=== PATIENT | male | born 1950 | race Caucasian/White ===

== ENCOUNTER → 2019-04-22 10:42 | Outpatient (CLI) | payer BC, SELFPAY ==
[2019-04-02 09:37] VITALS: BMI 29.9
--- NOTE | 2019-04-22 10:46 | ECHOD_ITS ---
Reason For Study: Afib/Flutter Procedure This was a 2D Doppler, Color Flow transthoracic echocardiogram. Myocardial strain analysis was performed in this exam to aid in the assessment of cardiac function. Exam performed in department. Left Ventricle Normal size and thickness. The estimated ejection fraction is 60 %. Normal diastology for age. No regional wall motion abnormalities noted. Right Ventricle Normal size and thickness. Normal systolic function. Atria Normal left atrium. Normal right atrium. Normal atrial septum. Mitral Valve The mitral valve is structurally normal. No prolapse or stenosis seen. Trivial mitral valve insufficiency. Tricuspid Valve Normal tricuspid valve. Trivial tricuspid valve insufficiency. Right ventricular systolic pressure estimated to be 27 mmHg. Aortic Valve Trisinus/trileaflet aortic valve. Mild focal aortic valve thickening. There is no aortic stenosis. Pulmonic Valve Normal pulmonic valve. Great Vessels Normal aortic root. Normal arch. Normal inferior vena cava. Inferior vena cava collapse with sniff. Pericardium/Pleural No pericardial effusion. MMode/2D Measurements & Calculations LVIDd: 5.2 cm IVSd: 0.96 cm LA dimension: 3.6 cm LVIDs: 3.0 cm LVPWd: 1.0 cm FS: 43.0 % LAV(MOD-bp): 52.7 ml LA A4 area: 17.9 cm2 RA A4 area: 16.6 cm2 LAV(MOD-bp) Indexed: 26.1 ml/m2 LAV(MOD-sp2): 58.9 ml LAV(MOD-sp4): 46.7 ml Time Measurements MV dec time: 0.23 sec Doppler Measurements & Calculations MV E max jose l: 70.1 cm/sec Lat Peak E' Jose L: 9.8 cm/sec Med Peak E' Jose L: 9.4 cm/sec MV A max jose l: 64.7 cm/sec E/E' lat: 7.1 E/E' med: 7.4 MV E/A: 1.1 MV V2 max: 71.2 cm/sec MV P1/2t max jose l: 71.2 cm/sec Ao V2 max: 107.8 cm/sec MV max P.0 mmHg MV P1/2t: 62.6 msec Ao max P.7 mmHg MV V2 mean: 36.8 cm/sec MV dec slope: 332.8 cm/sec2 Ao V2 mean: 72.8 cm/sec MV mean P.65 mmHg MVA(P1/2t): 3.5 cm2 Ao mean P.3 mmHg MV V2 VTI: 23.0 cm Ao V2 VTI: 24.0 cm LV V1 max: 88.7 cm/sec PA V2 max: 98.2 cm/sec TR max jose l: 234.1 cm/sec LV V1 max P.1 mmHg TR max P.9 mmHg LV V1 mean P.6 mmHg LV V1 mean: 59.5 cm/sec LV V1 VTI: 21.1 cm Interpretation Summary The estimated ejection fraction is 60 %. Normal diastology for age. Trivial mitral valve insufficiency. Trivial tricuspid valve insufficiency. Right ventricular systolic pressure estimated to be 27 mmHg. There is no comparison study available. Ordering Physician: Timbo Song Referring Physician: John Ta Performed By: Jordon Morales RCS
== END ==
PROVIDERS: Family Provider Family Medicine; PCP Family Medicine; Referring Provider Internal Medicine Cardiovascular Disease; Visit Provider Internal Medicine Cardiovascular Disease
DX: I48.0 Paroxysmal atrial fibrillation (principal); I49.1 Atrial premature depolarization; R53.83 Other fatigue
CPT/HCPCS: 93306

== ENCOUNTER → 2019-04-24 08:34 | Outpatient (CLI) | payer BC, SELFPAY ==
[2019-04-02 09:37] VITALS: BMI 29.9
--- NOTE | 2019-04-24 08:49 | STEWCON_ITS ---
Reason For Study: AFIB/FLUTTER Stress Results Protocol: JATINDER WITH DEFINITY Maximum Predicted HR: 152 bpm Target HR: 129 bpm % Maximum Predicted HR: 93 % DurationHeart Rate Stage (mm:ss) (bpm) BP Comment BASELINE 58 142/823 CC DEFINITY STAGE 1 3:00 106 164/82 STAGE 2 3:00 118 180/90 STAGE 3 2:45 142 192/842 CC DEFINITY RECOVERY 88 130/74 Stress Duration: 8:45 mm:ss Maximum Stress HR: 142 bpm Baseline Echocardiogram Findings The estimated ejection fraction is 65 %. Stress Echo Wall motion Data Resting WM Intermediate WM Stress WM Resting Wall Motion Wall Motion Stress No regional wall motion No regional wall motion abnormalities noted. abnormalities noted. EKG Data The baseline ECG displays normal sinus rhythm. The patient exercised according to the regular Jatinder protocol for a total duration of 8:45. The maximum heart rate attained was 144 beats per minute. This was 94% of maximum predicted heart rate. The patient exercised into stage 3 of the Jatinder protocol. At peak exercise, upsloping ST changes only were noted, which did not meet the criteria for ischemia. No clinical angina was noted. Interpretation Summary The estimated ejection fraction is 65 %. Normal, adequate, treadmill echocardiogram. Negative for ischemia by EKG and echocardiographic criteria. No anginal symptoms noted. Rare PVCs noted. Hypertensive blood pressure response to exercise. Average exercise capacity for age. Decreased sensitivity due to poor echo windows requiring Definity agent. Final LVEF is 75%. Test terminated due to dyspnea and the attainment of target heart rate. No complications. The study was technically difficult. Contrast injection was performed. Ordering Physician: Timbo Song Referring Physician: Timbo Song Performed By: Tesha Mclean, STEPHANI, RVT
[2019-04-24 11:17] LABS: AST(SGOT) 17 U/L (15-37); Alanine Aminotransfer ALT/SGPT 24 U/L (16-61); Albumin, Serum 3.7 g/dL (3.2-5.0); Alkaline Phosphatase 58 U/L (45-117); Anion Gap 6 (5-15); BUN 15 mg/dL (7-18); BUN/Creat Ratio 15.2 RATIO (10-20); Calcium,Total 8.8 mg/dL (8.5-10.1); Chloride 107 mmol/L (98-107); Creatinine, Serum 0.99 mg/dL (0.70-1.30); EST Glomerular Filtration Rate 80 mL/min (>60); Est Glom Filt Rate - Afr Amer 97 mL/min (>60); Globulin 3.7 g/dL (2.2-4.2); Glucose 104 mg/dL (74-106); PSA,Total - Annual Screen 0.56 ng/mL (0.00-4.00); Potassium 3.8 mmol/L (3.5-5.1); Protein, Total 7.4 g/dL (6.4-8.2); Sodium Level 140 mmol/L (136-145); Thyroid Stim Hormone (TSH) 1.65 uIU/mL (0.358-3.74)
== END ==
PROVIDERS: Family Provider Family Medicine; PCP Family Medicine; Referring Provider Internal Medicine Cardiovascular Disease; Visit Provider Internal Medicine Cardiovascular Disease
DX: I48.0 Paroxysmal atrial fibrillation (principal); I10 Essential (primary) hypertension; E03.9 Hypothyroidism, unspecified; C61 Malignant neoplasm of prostate
CPT/HCPCS: 36415; 80053; 84153; 84443; 93017; 93350; Q9957; A4216; C8928; G0103

== ENCOUNTER → 2019-09-24 09:57 | Outpatient (CLI) | payer BC, SELFPAY ==
[2019-09-18 10:47] VITALS: BMI 29.9
[2019-09-24 11:48] LABS: AST(SGOT) 11 U/L (15-37); Alanine Aminotransfer ALT/SGPT 23 U/L (16-61); Albumin, Serum 3.8 g/dL (3.2-5.0); Alkaline Phosphatase 58 U/L (45-117); Bilirubin, Direct 0.12 mg/dL (0.00-0.30); Cholesterol 203 mg/dL (200); Globulin 3.7 g/dL (2.2-4.2); High Density Lipoprotein 46 mg/dL; Protein, Total 7.5 g/dL (6.4-8.2); Triglycerides 123 mg/dL; Very Low Density Lipoprotein 25 mg/dL (5-40)
== END ==
PROVIDERS: PCP Family Medicine; Referring Provider Internal Medicine Cardiovascular Disease; Visit Provider Internal Medicine Cardiovascular Disease
DX: E78.5 Hyperlipidemia, unspecified (principal)
CPT/HCPCS: 36415; 80061; 80076

== ENCOUNTER → 2020-01-27 12:42 | Outpatient (CLI) | payer BC, SELFPAY ==
[2019-09-18 10:47] VITALS: BMI 29.9
--- NOTE | 2020-01-27 12:53 | CT_ITS ---
STUDY: LOW DOSE CT LUNG CANCER SCREENING REASON FOR EXAM: Male, 69 years old. TOBACCO ABUSE -- 1PPD X30 YEARS -- QUIT X10 YEARS AGO RADIATION DOSAGE (If Supplied By Facility): CTDIvol = ( 2.55 ) mGy, DLP = ( 82.00 ) mGycm TECHNIQUE: No contrast was administered. Low dose technique was utilized (average mAS-38 and kVp 120). 1.25 mm axial source images with a slice interval of 1.25-mm were reconstructed in lung windows. 2.5 mm axial source images with a slice interval of 2.5-mm were reconstructed in lung windows. 5.0 mm axial source images with a slice interval of 5.0-mm were reconstructed in soft tissue windows. Nodule measured using lung windows on PACS and/or independent workstation with automated measurement of minimum and maximum diameter. Nodule measurement reported as average diameter rounded to the nearest whole number. Growth is defined as an increase ins size of greater than 1.5 mm. COMPARISON: None. NODULES: None. Emphysema: Mild hyperinflation but no visible parenchymal changes of emphysema. Endobronchial lesion: None. Aorta: Ectatic (3.9 cm diameter) ascending thoracic aorta. Coronary arteries: Calcific atherosclerosis. Heart: Normal size. Pulmonary artery: Normal caliber. Mediastinal nodes: No adenopathy. Other chest and abdominal findings: Small hiatal hernia contains a portion of the gastric fundus. CT/Low Dose CT Lung Screening IMPRESSION: Lung RADS category 1. Continued annual screening suggested. Ectatic but nonaneurysmal ascending thoracic aorta. IMPORTANT NOTES FOR USE: ACR Lung-RADS Version 1.0 Assessment Categories Release Date: January 04, 2014 Category: Coded 0-4 bases on nodule(s) with highest degree of suspicion. Negative screen is defined as categories 1 and 2; a positive screen is defined as categories 3 and 4. Category 3 and 4A nodules that are unchanged on interval CT should be coded as category 2, and individuals returned to screening in 12 months. Category 4X: Category 3 or 4 nodules with additional imaging findings that increase the suspicion of lung cancer, such as spiculation, GGN that doubles in size in 1 year, enlarged lymph notes, etc. Category Modifiers: S (significant finding unrelated to lung cancer) and C (prior history of treated lung cancer) may be added to the 0-4 Lung-RADS Electronically Signed: Herve Perez, at 22:04 EDT Tel , Service support ,
== END ==
PROVIDERS: PCP Nurse Practitioner Primary Care; Referring Provider Nurse Practitioner Primary Care; Visit Provider Nurse Practitioner Primary Care
DX: Z12.2 Encounter for screening for malignant neoplasm of respiratory organs (principal); Z87.891 Personal history of nicotine dependence
CPT/HCPCS: G0297

== ENCOUNTER → 2020-05-19 10:33 | Outpatient (CLI) | payer BC, SELFPAY ==
[2020-04-28 09:15] VITALS: BMI 26.9
--- NOTE | 2020-05-19 10:34 | ECHOD_ITS ---
Reason For Study: Preop Procedure This was a 2D Doppler, Color Flow transthoracic echocardiogram. Myocardial strain analysis was performed in this exam to aid in the assessment of cardiac function. Exam performed in department. Left Ventricle Normal LV size. The estimated ejection fraction is 65 %. No evidence for diastolic dysfunction. No regional wall motion abnormalities noted. Right Ventricle Normal RV size. Normal systolic function. Atria Normal left atrium. Normal right atrium. No doppler evidence for ASD. Mitral Valve There is no mitral valve stenosis. No mitral valve insufficiency. Tricuspid Valve There is no tricuspid stenosis. Trivial tricuspid valve insufficiency. Pulmonary artery systolic pressure is 25 mmHg. Aortic Valve Trisinus/trileaflet aortic valve. Moderate focal aortic valve thickening. There is no aortic stenosis. No aortic valve insufficiency. Pulmonic Valve There is no pulmonic valvular stenosis. No pulmonic valve insufficiency. Great Vessels Normal aortic root. Pericardium/Pleural No pericardial effusion. MMode/2D Measurements & Calculations LVIDd: 4.1 cm IVSd: 1.1 cm Ao root diam: 3.5 cm LVIDs: 2.7 cm LVPWd: 1.1 cm RVDd: 3.9 cm FS: 34.8 % LAV(MOD-bp): 43.5 ml LVAd ap4: 24.4 cm2 SV(MOD-sp4): 41.2 ml LAV(MOD-bp) Indexed: 22.6 ml/m2 EDV(MOD-sp4): 66.5 ml LAV(MOD-sp2): 51.8 ml EDV(sp4-el): 69.6 ml LAV(MOD-sp4): 34.9 ml LVAs ap4: 13.3 cm2 ESV(MOD-sp4): 25.3 ml ESV(sp4-el): 25.9 ml EF(MOD-sp4): 62.0 % EF(sp4-el): 62.8 % SV(sp4-el): 43.7 ml LA A4 area: 14.1 cm2 LA dimension(2D): 3.6 cm RA A4 area: 13.2 cm2 Doppler Measurements & Calculations MV E max jose l: 47.6 cm/sec Lat Peak E' Jose L: 10.6 cm/sec Med Peak E' Jose L: 6.8 cm/sec MV A max jose l: 69.2 cm/sec E/E' lat: 4.5 E/E' med: 7.0 MV E/A: 0.69 Ao V2 max: 146.7 cm/sec LV V1 max: 110.7 cm/sec PA V2 max: 88.6 cm/sec Ao max P.6 mmHg LV V1 max P.9 mmHg Ao V2 mean: 99.5 cm/sec Ao mean P.4 mmHg Ao V2 VTI: 29.4 cm TR max jose l: 226.7 cm/sec TR max P.6 mmHg Interpretation Summary The estimated ejection fraction is 65 %. No evidence for diastolic dysfunction. Ordering Physician: Timbo Song Referring Physician: Edwin Carbajal Performed By: Tesha Mclean RDCS, RVT
== END ==
PROVIDERS: PCP Nurse Practitioner Primary Care; Referring Provider Internal Medicine Cardiovascular Disease; Visit Provider Internal Medicine Cardiovascular Disease
DX: Z01.810 Encounter for preprocedural cardiovascular examination (principal); C15.9 Malignant neoplasm of esophagus, unspecified; I48.0 Paroxysmal atrial fibrillation; I10 Essential (primary) hypertension
CPT/HCPCS: 93306

== ENCOUNTER → 2020-05-26 09:32 | Outpatient (CLI) | payer BC, SELFPAY ==
[2020-04-28 09:15] VITALS: BMI 26.9
--- NOTE | 2020-05-26 09:33 | STEWCON_ITS ---
Reason For Study: PRE-OP, AFIB, HTN Stress Results Protocol: Stress Echocardiogram Maximum Predicted HR: 151 bpm Target HR: 128 bpm % Maximum Predicted HR: 97 % DurationHeart Rate Stage (mm:ss) (bpm) BP Comment BASELINE 71 134/80DILUTED DEFINITY 2 CC USED KATELYNN PROTOCOL- STAGE 1 3:00 110 132/80NO SX KATELYNN PROTOCOL- STAGE 2 3:00 125 138/82SL DYSPNEA, NO CP KATELYNN PROTOCOL- STAGE 3 2:00 146 / SL DYSPNEA, SL FATIGUE, NO CP RECOVERY 85 138/72NO COMPLAINTS Stress Duration: 8:00 mm:ss Maximum Stress HR: 146 bpm Baseline Echocardiogram Findings The estimated ejection fraction is 65 %. post stress EF is 75%. Stress Echo Wall motion Data Resting WM Intermediate WM Stress WM Resting Wall Motion Wall Motion Stress No regional wall motion No regional wall motion abnormalities noted. abnormalities noted. EKG Data The baseline ECG displays normal sinus rhythm. No ischemic changes. Symptoms with Stress The patient experinced no chest pain . Interpretation Summary The estimated ejection fraction is 65 %. Stress echo is negative for stress induced CP or EKG or echocardiographic changes of ischemia. Functional capacity is normal for age Ordering Physician: Timbo Song Referring Physician: TIMBO OSBORN Performed By: Diann Lindsey RDCS
== END ==
PROVIDERS: PCP Nurse Practitioner Primary Care; Referring Provider Internal Medicine Cardiovascular Disease; Visit Provider Internal Medicine Cardiovascular Disease
DX: I48.0 Paroxysmal atrial fibrillation (principal); I10 Essential (primary) hypertension
CPT/HCPCS: 93017; 93350; Q9957; A4216; C8928